=== PATIENT | female | born 1975 | race Caucasian/White ===

== ENCOUNTER 2016-11-30 12:48 | Emergency (ER) | payer OTHER ==
[2016-11-30 13:09] VITALS: TEMP 99.3; O2SAT 97
--- NOTE | 2016-11-30 13:28 | CPEKG ---
Heart Rate: 68 RR Interval: 882 P-R Interval: 136 QRSD Interval: 80 QT Interval: 392 QTC Interval: 417 P [place]: 76 QRS [place]: 62 T Wave [place]: 26 EKG Severity - NORMAL ECG - EKG Impression: SINUS RHYTHM Electronically Signed By: Harsh Alvarez 01-Dec-2016 12:57:55
[2016-11-30] MEDS ORDERED: NS 1,000 ML IV ONE (13:44)
--- NOTE | 2016-11-30 13:49 | UCPHY ---
H & P Time Seen by Provider: 11/30/16 13:23 Patient Type: New HPI/ROS: CHIEF COMPLAINT: Tingling HISTORY OF PRESENT ILLNESS: 40-year-old female presents reporting that 4 days ago she developed tingling in left hand. It felt reminiscent of her prior carpal tunnel issues. She went to bed that evening and when she woke the next morning the tingling was still present. Patient continued to feel tingling in her hand throughout the next day. Symptoms gradually moved up her forearm and she contacted her primary care physician yesterday. They have an appointment to see her next week. This morning she woke she had tingling in the right hand and noticed the tingling in her left hand have moved to the level of humerus. Mild headache today. Patient denies any chest pain or shortness of breath. She did denies any weakness. Slight tingling around her lips at 1 point today. No tingling or paresthesias in her legs. Denies any weakness. No speech difficulties. No confusion. No head trauma. No history of cervical spine issues. Patient denies any fevers or chills. Any recent illness. No vomiting or diarrhea. No palpitations or cardiac history. Denies shortness of breath. REVIEW OF SYSTEMS: Aside from elements discussed in the HPI, a comprehensive 10-point review of systems was reviewed and is negative. PAST MEDICAL HISTORY: History of panic attacks. Patient does use a Mirena IUD. SOCIAL HISTORY: Smoker. VITAL SIGNS Reviewed by me. GENERAL: Well-developed, well-nourished, calm, conversant. Normal respiratory rate. HEENT: Atraumatic. Eyes: PERRL, EOMI, no nystagmus. No icterus. No injection. Mouth: moist mucous membranes. No erythema or lesions. Neck: No meningitis. Nontender to palpation. No adenopathy. Negative Kernig's. Negative Brudzinski's. No meningismus. LUNGS: Clear to auscultation bilaterally, no wheezes, rhonchi or rales. CARDIAC: Regular rate and rhythm, no rubs, murmurs or gallops. ABDOMEN: Soft, nontender, nondistended, bowel sounds normal. BACK: No CVA tenderness. EXTREMITIES: No trauma. No edema. Range of motion is normal throughout. NEURO: Alert and oriented, cranial nerves II through XII are intact. Motor strength 5 over 5 in all major muscle groups. Sensation intact to light touch. Normal gait. SKIN: Warm and dry, no rash. PSYCHIATRIC: Normal mentation, no agitation. Smoking Status: Light smoker Constitutional: Initial Vital Signs Temperature (C) 37.4 C 11/30/16 12:55 Heart Rate 74 11/30/16 12:55 Respiratory Rate 16 11/30/16 12:55 Blood Pressure 137/81 H 11/30/16 12:55 O2 Sat (%) 97 11/30/16 12:55 O2 Delivery Mode Room Air Allergies/Adverse Reactions: latex Allergy (Severe, Verified 11/30/16 12:59) Hives Home Medications: Medication Instructions Recorded LORazepam [Ativan] 0.5 - 1 mg PO BID PRN #8 tablet 11/30/16 MIRENA 11/30/16 Sertraline HCl 11/30/16 Medical Decision Making - Diagnostics EKG Interpretation: 12-LEAD EKG: Please see the full report in [facility]. My interpretation: Sinus rhythm Imaging: Imaging Impressions Head CT 11/30/16 14:23 Impression: No acute intracranial findings. If symptoms persist and clinical suspicion warrants, consider MRI. Findings discussed with Candis Young MD 11/30/2016 at 15:11. ED Course/Re-evaluation: 40-year-old female presenting with bilateral paresthesias. Symptoms started 4 days ago involved just her left arm. At no point did she have any chest pain or shortness of breath. She does not feel like she is hyperventilating although she does have a history of panic attacks. No history of thromboembolic events but the patient is a smoker and has a Mirena IUD in place. No headache. Evaluation included labs which are normal, including electrolytes. Negative troponin. Normal EKG. Negative head CT. Negative D-dimer. Patient's course was discussed with Dr. Jose Raul Moncada, from Neurology. Patient should follow up with Dr. Moncada or 1 of his colleagues at [facility]. Patient has no objective neurologic deficits. Differential Diagnosis: Differential diagnoses for the patient's symptom complex was considered including but not limited to paresthesias, anxiety, hyperventilation, electrolyte abnormalities, neuropathy, TIA, CVA. - Data Points Laboratory Results: Laboratory Results 11/30/16 13:59 11/30/16 13:59 11/30/16 11/30/16 11/30/16 14:36 13:59 13:59 WBC RBC Hgb Hct MCV MCH MCHC RDW Plt Count MPV Neut % (Auto) Lymph % (Auto) Harris % (Auto) Eos % (Auto) Baso % (Auto) Nucleat RBC Rel Count Absolute Neuts (auto) Absolute Lymphs (auto) Absolute Monos (auto) Absolute Eos (auto) Absolute Basos (auto) Absolute Nucleated RBC Immature Gran % Immature Gran # D-Dimer 0.27 ug/mLFEU ug/mLFEU (0.00-0.50) Sodium 141 mEq/L mEq/L (134-144) Potassium 4.3 mEq/L mEq/L (3.5-5.2) Chloride 105 mEq/L mEq/L (97-110) Carbon Dioxide 22 mEq/l mEq/l (22-31) Anion Gap 14 mEq/L mEq/L (8-16) BUN 13 mg/dL mg/dL (7-23) Creatinine 0.8 mg/dL mg/dL (0.6-1.0) Estimated GFR > 60 Glucose 82 mg/dL mg/dL (70-100) Calcium 9.4 mg/dL mg/dL (8.5-10.4) Total Bilirubin 0.3 mg/dL mg/dL (0.1-1.4) Conjugated Bilirubin 0.2 mg/dL mg/dL (0.0-0.5) Unconjugated Bilirubin 0.1 mg/dL mg/dL (0.0-1.1) AST 22 IU/L IU/L (14-46) ALT 29 IU/L IU/L (9-52) Alkaline Phosphatase 44 IU/L IU/L (38-126) Troponin I < 0.012 ng/mL ng/mL (0-0.034) Total Protein 7.7 g/dL g/dL (6.3-8.2) Albumin 4.3 g/dL g/dL (3.5-5.0) Lipase 175.0 IU/L IU/L (23-300) Beta HCG, Qual NEGATIVE Urine Color Urine Appearance Urine pH Ur Specific Cass Urine Protein Urine Ketones Urine Blood Urine Nitrate Urine Bilirubin Urine Urobilinogen Ur Leukocyte Esterase Urine RBC Urine WBC Ur Epithelial Cells Urine Mucus Urine Glucose 11/30/16 11/30/16 13:59 13:45 WBC 10.54 10^3/uL H 10^3/uL (3.80-9.50) RBC 4.33 10^6/uL 10^6/uL (4.18-5.33) Hgb 13.4 g/dL g/dL (12.6-16.3) Hct 39.0 % % (38.0-47.0) MCV 90.1 fL fL (81.5-99.8) MCH 30.9 pg pg (27.9-34.1) MCHC 34.4 g/dL g/dL (32.4-36.7) RDW 13.3 % % (11.5-15.2) Plt Count 331 10^3/uL 10^3/uL (150-400) MPV 9.0 fL fL (8.7-11.7) Neut % (Auto) 72.8 % % (39.3-74.2) Lymph % (Auto) 19.0 % % (15.0-45.0) Harris % (Auto) 6.1 % % (4.5-13.0) Eos % (Auto) 1.0 % % (0.6-7.6) Baso % (Auto) 0.8 % % (0.3-1.7) Nucleat RBC Rel Count 0.0 % % (0.0-0.2) Absolute Neuts (auto) 7.68 10^3/uL H 10^3/uL (1.70-6.50) Absolute Lymphs (auto) 2.00 10^3/uL 10^3/uL (1.00-3.00) Absolute Monos (auto) 0.64 10^3/uL 10^3/uL (0.30-0.80) Absolute Eos (auto) 0.11 10^3/uL 10^3/uL (0.03-0.40) Absolute Basos (auto) 0.08 10^3/uL 10^3/uL (0.02-0.10) Absolute Nucleated RBC 0.00 10^3/uL 10^3/uL (0-0.01) Immature Gran % 0.3 % % (0.0-1.1) Immature Gran # 0.03 10^3/uL 10^3/uL (0.00-0.10) D-Dimer Sodium Potassium Chloride Carbon Dioxide Anion Gap BUN Creatinine Estimated GFR Glucose Calcium Total Bilirubin Conjugated Bilirubin Unconjugated Bilirubin AST ALT Alkaline Phosphatase Troponin I Total Protein Albumin Lipase Beta HCG, Qual Urine Color YELLOW Urine Appearance CLEAR Urine pH 5.5 (5.0-7.5) Ur Specific Cass 1.020 (1.002-1.030) Urine Protein NEGATIVE (NEGATIVE) Urine Ketones NEGATIVE (NEGATIVE) Urine Blood 1+ H (NEGATIVE) Urine Nitrate NEGATIVE (NEGATIVE) Urine Bilirubin NEGATIVE (NEGATIVE) Urine Urobilinogen 0.2 EU EU (0.2-1.0) Ur Leukocyte Esterase NEGATIVE (NEGATIVE) Urine RBC 1-3 /hpf /hpf (0-3) Urine WBC 0-1 /hpf /hpf (0-3) Ur Epithelial Cells TRACE /lpf /lpf (NONE-1+) Urine Mucus TRACE /lpf /lpf (NONE-1+) Urine Glucose NEGATIVE (NEGATIVE) Medications Given: Discontinued Medications Sodium Chloride (Ns) 1,000 mls @ 0 mls/hr IV ONCE ONE PRN Reason: Wide Open Stop: 11/30/16 13:45 Last Admin: 11/30/16 14:30 Dose: 1,000 mls Departure - Departure Disposition: Home, Routine, Self-Care Clinical Impression: Paresthesia of upper extremity Condition: Good Instructions: Paresthesia (ED) Additional Instructions: There is no definitive cause of your symptoms identified today. There is no evidence of electrolyte abnormalities, diabetes, stroke, hemorrhage , cardiac cause, or blood clot. Your case has been discussed with the neurology service. Please follow up with the neurologist as soon as possible. Please eat a balanced diet, get plenty of rest, and drink plenty of fluid. You been given a prescription of Ativan. You may use this if needed for any anxiety regarding your symptoms. Referrals: Shazia Díaz NP [Primary Care Provider] - As per Instructions Prescriptions: LORazepam [Ativan] 0.5 - 1 mg PO BID PRN #8 tablet PRN Reason: Anxiety - PQRS PQRS Measurement: Not applicable
[2016-11-30 13:52] LABS: COLOR YELLOW; LEUKOCYTE ESTERASE,URINE NEGATIVE (NEGATIVE); NITRITE,URINE NEGATIVE (NEGATIVE); PH,URINE 5.5 (5.0-7.5)
[2016-11-30 14:01] LABS: % IMMATURE GRANULYOCYTES 0.3 % (0.0-1.1); ABSOLUTE IMMATURE GRANULOCYTES 0.03 10^3/uL (0.00-0.10); ADD DIFF? NO; ADD MORPH? NO; ADD SCAN? NO; ATYPICAL LYMPHOCYTE FLAG 20 (0-99); FRAGMENT RBC FLAG 0 (0-99); HEMOGLOBIN 13.4 g/dL (12.6-16.3); LEFT SHIFT FLG 0 (0-99); LIPEMIA HEMOLYSIS FLAG 90 (0-99); MEAN CELL HEMOGLOBIN 30.9 pg (27.9-34.1); MEAN CELL HEMOGLOBIN CONCENTR. 34.4 g/dL (32.4-36.7); MEAN CELL VOLUME 90.1 fL (81.5-99.8); PLATELET CLUMPS FLAG 0 (0-99); PLATELET COUNT 331 10^3/uL (150-400); RED BLOOD CELL COUNT 4.33 10^6/uL (4.18-5.33); RED CELL DISTRIBUTION WIDTH 13.3 % (11.5-15.2)
[2016-11-30 14:03] LABS: MUCUS TRACE /lpf (NONE-1+); WBC,URINE 0-1 /hpf (0-3)
[2016-11-30 14:15] LABS: ALANINE AMINOTRANSFERASE 29 IU/L (9-52); ALBUMIN 4.3 g/dL (3.5-5.0); ALKALINE PHOSPHATASE 44 IU/L (38-126); ANION GAP 14 mEq/L (8-16); ASPARTATE AMINOTRANSFERASE 22 IU/L (14-46); BILIRUBIN,TOTAL 0.3 mg/dL (0.1-1.4); BILIRUBIN-CONJUGATED 0.2 mg/dL (0.0-0.5); BILIRUBIN-UNCONJUGATED 0.1 mg/dL (0.0-1.1); CALCIUM 9.4 mg/dL (8.5-10.4); CARBON DIOXIDE 22 mEq/l (22-31); CHLORIDE 105 mEq/L (97-110); CREATININE 0.8 mg/dL (0.6-1.0); GLOMERULAR FILTRATION RATE > 60; GLUCOSE 82 mg/dL (70-100); POTASSIUM 4.3 mEq/L (3.5-5.2); SODIUM 141 mEq/L (134-144); TOTAL PROTEIN 7.7 g/dL (6.3-8.2)
[2016-11-30 14:25] LABS: TROPONIN I < 0.012 ng/mL (0-0.034)
[2016-11-30] MEDS ORDERED: LORazepam 1 MG TAB PO ONE (15:20)
[2016-11-30 15:58] VITALS: BP 115/62; PULSE 85; RESP 18
== END 2016-11-30 15:56 | disposition home or self-care (01) ==
LOC: CED 12:48
DX: R20.2 Paresthesia of skin (principal); Z72.0 Tobacco use
CPT/HCPCS: 70450-PO; 80048-PO; 80076-PO; 81003-PO; 81015-PO; 83690-PO; 84484-PO; 84703-PO; 85025-PO; 85378-PO; 96360-PO; G0463-PO

== ENCOUNTER → 2017-01-09 | Outpatient (CLI) | payer OTHER ==
[~2017-01-09] MED LIST: GADOBUTROL 10 ML VIAL IVP ONE
== END ==
LOC: FIMAGING 12:00
PROVIDERS: ATTEND Psychiatry & Neurology Neurology
DX: M48.02 Spinal stenosis, cervical region (principal)
CPT/HCPCS: A9585

== ENCOUNTER → 2017-01-13 | Outpatient (CLI) | payer OTHER | LOC: FIMAGING 12:37 | PROVIDERS: ATTEND Psychiatry & Neurology Neurology | DX: R20.0 Anesthesia of skin (principal); M79.641 Pain in right hand; M79.642 Pain in left hand | CPT/HCPCS: A9585 ==

== ENCOUNTER → 2018-07-26 | Outpatient (CLI) | payer OTHER | LOC: CIMAGING 08:06 | PROVIDERS: ATTEND Nurse Practitioner | DX: Z12.31 Encounter for screening mammogram for malignant neoplasm of breast (principal) ==